=== PATIENT | male | born 1945 | race Caucasian/White ===

== ENCOUNTER 2017-01-20 09:09 | Emergency (ER) | payer MEDICARE ==
[~2017-01-20] VITALS: Ht 177.8 cm; Wt 80.0 kg
[~2017-01-20 09:09] MED LIST: BABY ASPIRIN81 MG OR; CEPHALEXIN500 MG OR; CRESTOR40 MG OR; FLONASE NASAL50 MCG; GLIPIZIDE10 MG PO; JANUVIA100 MG OR; LISINOP/HCTZ1 TAB OR; METFORMIN500 MG PO; NEURONTIN600 MG PO; OMEGA-31000 MG OR; PAROXETINE25 MG OR; TENORMIN OR; ZITHROMAX250 MG PO
[2017-01-20] MEDS ORDERED: METFORMIN500 MG PO (09:52)
[2017-01-20] MEDS ORDERED: VITAMIN D31000 UNI1 PO (09:52)
[2017-01-20] MEDS ORDERED: ATORVASTATIN CA40 MG PO (09:54)
[2017-01-20] MEDS ORDERED: LOSARTAN POTASS50 MG PO (09:55)
[2017-01-20 10:01] LABS: HEMATOCRIT 42.4 % (39.0-50.0); HEMOGLOBIN 14.6 g/dl (14.0-18.0); IMMATURE GRANULOCYTES 0.4 % (0.0-1.0); MEAN CELL VOLUME 92.8 fL CALC (80.0-100.0); MEAN CORPUSCULAR HGB 31.9 pG CALC (26.0-32.0); MEAN CORPUSCULAR HGB CONC 34.4 g/L CALC (32.0-36.0); NEUT# 7.57 thou/uL (1.82-7.42); RED BLOOD COUNT 4.57 mill/uL (4.70-6.10); RED CELL DISTRI WIDTH 13.5 % (11.5-15.5)
[2017-01-20 10:06] LABS: INFLUENZA A NONE DETECTED (NONE DETECT); INFLUENZA B NONE DETECTED (NONE DETECT)
[2017-01-20 10:12] LABS: ALBUMIN 4.4 g/dL (3.2-5.0); ALKALINE PHOSPHATASE 70 u/l (38-126); ANION GAP 19 (6-22 (CALC)); BILIRUBIN, TOTAL 2.3 mg/dL (0.0-1.4); BUN 19 mg/dL (8-23); BUN/CREATININE RATIO 15 (12-20 (CALC)); CALCIUM 9.5 mg/dL (8.4-10.2); CARBON DIOXIDE 23 mmol/l (22-30); CHLORIDE 104 mmol/l (95-108); CREATININE 1.3 mg/dL (0.7-1.3); GFR 55 ML/MIN (>=60 (CALC)); GFR FOR AFR.AMER. > 60 ML/MIN (>=60 (CALC)); GLUCOSE 310 mg/dL (82-115); POTASSIUM 4.5 mmol/l (3.5-5.1); SGOT/AST 30 u/l (19-48); SGPT/ALT 49 u/l (11-66); SODIUM 141 mmol/l (137-146); TOTAL PROTEIN 7.1 g/dL (6.3-8.2)
[2017-01-20 11:00] LABS: URINE BILIRUBIN - DIPSTICK NEGATIVE (NEGATIVE); URINE BLOOD DIPSTICK NEGATIVE (NEGATIVE); URINE CLARITY CLEAR; URINE COLOR YELLOW; URINE GLUCOSE - DIPSTICK >=1000 mg/dL (NEGATIVE); URINE KETONE NEGATIVE (NEGATIVE); URINE LEUK ESTERASE NEGATIVE (NEGATIVE); URINE NITRITE - DIPSTICK NEGATIVE (Negative); URINE PROTEIN - DIPSTICK NEGATIVE (NEG-TRACE); URINE UROBILINOGEN - DIPSTICK 0.2 E.U./dL (0.2)
[2017-01-20] MEDS ORDERED: ROBITUSSIN AC10 ML PO (11:14)
[2017-01-20] MEDS ORDERED: KEFLEX500 M1 PO (11:14)
[2017-01-20 11:35] VITALS: BP 144/70
== END 2017-01-20 11:35 | disposition home or self-care (01) ==
LOC: ED 09:09
PROVIDERS: Emergency Medicine
DX: J06.9 Acute upper respiratory infection, unspecified (principal); R05 Cough; R52 Pain, unspecified

== ENCOUNTER 2017-03-30 18:41 | Inpatient (IN) | payer MEDICARE ==
[~2017-03-30] VITALS: Ht 177.8 cm; Wt 97.0 kg
[~2017-03-30 18:41] MED LIST changes: +ATORVASTATIN CA40 MG PO; +KEFLEX500 M1 PO; +LOSARTAN POTASS50 MG PO; +ROBITUSSIN AC10 ML PO; +VITAMIN D31000 UNI1 PO
[2017-03-30 19:10] LABS: HEMOGLOBIN 14.1 g/dl (14.0-18.0); IMMATURE GRANULOCYTES 0.3 % (0.0-1.0); MEAN CELL VOLUME 91.7 fL CALC (80.0-100.0); MEAN CORPUSCULAR HGB 32.3 pG CALC (26.0-32.0); MEAN CORPUSCULAR HGB CONC 35.3 g/L CALC (32.0-36.0); NEUT# 3.05 thou/uL (1.82-7.42); RED BLOOD COUNT 4.36 mill/uL (4.70-6.10); RED CELL DISTRI WIDTH 13.4 % (11.5-15.5)
[2017-03-30 19:25] LABS: ALBUMIN 4.3 g/dL (3.2-5.0); BILIRUBIN, TOTAL 1.7 mg/dL (0.0-1.4); CALCIUM 9.9 mg/dL (8.4-10.2); CREATININE 1.5 mg/dL (0.7-1.3); POTASSIUM 4.4 mmol/l (3.5-5.1); TOTAL PROTEIN 6.7 g/dL (6.3-8.2)
[2017-03-30 19:33] LABS: INFLUENZA A POSITIVE (NONE DETECT); INFLUENZA B NONE DETECTED (NONE DETECT)
[2017-03-30 20:41] LABS: URINE BILIRUBIN - DIPSTICK NEGATIVE (NEGATIVE); URINE BLOOD DIPSTICK SMALL (NEGATIVE); URINE COLOR YELLOW; URINE GLUCOSE - DIPSTICK >=1000 mg/dL (NEGATIVE); URINE KETONE TRACE mg/dL (NEGATIVE); URINE LEUK ESTERASE NEGATIVE (NEGATIVE); URINE NITRITE - DIPSTICK NEGATIVE (Negative); URINE PROTEIN - DIPSTICK 30 mg/dL (NEG-TRACE); URINE SPECIFIC GRAVITY >=1.030; URINE UROBILINOGEN - DIPSTICK 0.2 E.U./dL (0.2)
[2017-03-30 20:42] LABS: URINE CLARITY CLEAR
[2017-03-30 20:50] LABS: URINE AMORPH SEDIMENT FEW hpf (NONE-FER); URINE RBC 0-2 RBC/hpf (0-5); URINE WBC 0-2 WBC/hpf (0-5)
[2017-03-30] MEDS ORDERED: MULTI VIT PO (22:38)
[2017-03-30] MEDS ORDERED: GLUCOSAMINE CHO1 CA3 PO (22:40)
[2017-03-30 23:00] VITALS: BP 135/74
[2017-03-31 04:35] VITALS: BP 138/74
[2017-03-31 06:09] LABS: ANION GAP 15 (6-22 (CALC)); BUN 15 mg/dL (8-23); BUN/CREATININE RATIO 13 (12-20 (CALC)); CALCIUM 9.2 mg/dL (8.4-10.2); CARBON DIOXIDE 25 mmol/l (22-30); CHLORIDE 110 mmol/l (95-108); CREATININE 1.2 mg/dL (0.7-1.3); GFR 60 ML/MIN (>=60 (CALC)); GFR FOR AFR.AMER. > 60 ML/MIN (>=60 (CALC)); GLUCOSE 222 mg/dL (82-115); HEMATOCRIT 36.2 % (39.0-50.0); HEMOGLOBIN 12.6 g/dl (14.0-18.0); IMMATURE GRANULOCYTES 0.2 % (0.0-1.0); MAGNESIUM 1.7 mg/dL (1.6-2.3); MEAN CELL VOLUME 94.5 fL CALC (80.0-100.0); MEAN CORPUSCULAR HGB 32.9 pG CALC (26.0-32.0); MEAN CORPUSCULAR HGB CONC 34.8 g/L CALC (32.0-36.0); NEUT# 3.83 thou/uL (1.82-7.42); POTASSIUM 4.2 mmol/l (3.5-5.1); RED BLOOD COUNT 3.83 mill/uL (4.70-6.10); RED CELL DISTRI WIDTH 13.9 % (11.5-15.5); SODIUM 145 mmol/l (137-146)
[2017-03-31 07:30] VITALS: BP 141/82
[2017-03-31 08:32] LABS: CHOLESTEROL HDL RATIO 2.7 (<4.4 (CALC))
[2017-03-31 11:05] VITALS: BP 143/80
[2017-03-31 15:15] VITALS: BP 149/70
[2017-03-31 19:20] VITALS: BP 153/79
[2017-03-31 23:15] VITALS: BP 151/80
[2017-04-01 03:17] VITALS: BP 136/78
[2017-04-01 06:56] LABS: HEMATOCRIT 37.9 % (39.0-50.0); HEMOGLOBIN 13.2 g/dl (14.0-18.0); IMMATURE GRANULOCYTES 0.5 % (0.0-1.0); MEAN CELL VOLUME 93.1 fL CALC (80.0-100.0); MEAN CORPUSCULAR HGB 32.4 pG CALC (26.0-32.0); MEAN CORPUSCULAR HGB CONC 34.8 g/L CALC (32.0-36.0); NEUT# 3.38 thou/uL (1.82-7.42); RED BLOOD COUNT 4.07 mill/uL (4.70-6.10); RED CELL DISTRI WIDTH 13.4 % (11.5-15.5)
[2017-04-01 07:10] LABS: ANION GAP 18 (6-22 (CALC)); BUN 19 mg/dL (8-23); BUN/CREATININE RATIO 16 (12-20 (CALC)); CALCIUM 9.1 mg/dL (8.4-10.2); CARBON DIOXIDE 23 mmol/l (22-30); CHLORIDE 106 mmol/l (95-108); CREATININE 1.2 mg/dL (0.7-1.3); GFR 60 ML/MIN (>=60 (CALC)); GFR FOR AFR.AMER. > 60 ML/MIN (>=60 (CALC)); GLUCOSE 325 mg/dL (82-115); MAGNESIUM 1.9 mg/dL (1.6-2.3); POTASSIUM 4.2 mmol/l (3.5-5.1); SODIUM 143 mmol/l (137-146)
[2017-04-01 09:23] VITALS: BP 154/73
[2017-04-01 09:34] VITALS: BP 154/73
[2017-04-01] MEDS ORDERED: ZITHROMAX500 MG PO (10:28)
[2017-04-01] MEDS ORDERED: TAM75CAP PO (10:28)
[2017-04-01] MEDS ORDERED: MEDDOSEPAK PO (10:32)
== END 2017-04-01 12:40 | disposition home or self-care (01) | DRG 194 ==
LOC: ED 18:41 → ED-I 22:11 → ED 22:40 → MS2 22:41
PROVIDERS: Emergency Medicine; Nurse Practitioner Family; ADMIT Internal Medicine; ATTEND Internal Medicine
DX: J10.00 Influenza due to other identified influenza virus with unspecified type of pneumonia (principal); N17.9 Acute kidney failure, unspecified; E11.22 Type 2 diabetes mellitus with diabetic chronic kidney disease; E11.65 Type 2 diabetes mellitus with hyperglycemia; E86.0 Dehydration; I12.9 Hypertensive chronic kidney disease with stage 1 through stage 4 chronic kidney disease, or unspecified chronic kidney disease; N18.3 Chronic kidney disease, stage 3 (moderate); E78.5 Hyperlipidemia, unspecified; I25.10 Atherosclerotic heart disease of native coronary artery without angina pectoris; T38.0X5D Adverse effect of glucocorticoids and synthetic analogues, subsequent encounter; F43.10 Post-traumatic stress disorder, unspecified; R09.02 Hypoxemia; Z79.84 Long term (current) use of oral hypoglycemic drugs
CPT/HCPCS: J1650

== ENCOUNTER 2019-02-02 18:17 | Emergency (ER) | payer OTHER, MEDICARE ==
[~2019-02-02] VITALS: Ht 177.8 cm; Wt 99.5 kg
[~2019-02-02 18:17] MED LIST changes: +GLUCOSAMINE CHO1 CA3 PO; +MEDDOSEPAK PO; +MULTI VIT PO; +TAM75CAP PO; +ZITHROMAX500 MG PO
[2019-02-02] MEDS ORDERED: AZITHROMYCIN1 GM PO (18:30)
[2019-02-02] MEDS ORDERED: PROMETHAZINE XX (18:31)
[2019-02-02] MEDS ORDERED: TAM75CAP PO (18:31)
[2019-02-02] MEDS ORDERED: VITAMIN D31000 UNI1 PO (18:32)
[2019-02-02] MEDS ORDERED: PLAVIX75 MG PO (18:35)
[2019-02-02] MEDS ORDERED: METOPROL TAR25 MG PO (18:35)
[2019-02-02 19:35] LABS: ALBUMIN 4.4 g/dL (3.2-5.0); CREATININE 1.5 mg/dL (0.7-1.3); POTASSIUM 4.3 mmol/l (3.5-5.1); TOTAL PROTEIN 7.5 g/dL (6.3-8.2)
[2019-02-02 19:37] LABS: BILIRUBIN, TOTAL 2.4 mg/dL (0.0-1.4)
[2019-02-02 19:42] LABS: IMMATURE GRANULOCYTES 0.2 % (0.0-5.0); MEAN CELL VOLUME 93.8 fL CALC (80.0-100.0); MEAN CORPUSCULAR HGB 32.5 pG CALC (26.0-32.0); MEAN CORPUSCULAR HGB CONC 34.6 g/L CALC (32.0-36.0); NEUT# 3.86 thou/uL (1.82-7.42); RED BLOOD COUNT 4.71 mill/uL (4.70-6.10); RED CELL DISTRI WIDTH 13.9 % (11.5-15.5)
[2019-02-02 19:44] LABS: HEMATOCRIT 44.2 % (39.0-50.0); HEMOGLOBIN 15.3 g/dl (14.0-18.0)
[2019-02-02 21:25] LABS: URINE BILIRUBIN - DIPSTICK NEGATIVE (NEGATIVE); URINE BLOOD DIPSTICK TRACE-INTACT (NEGATIVE); URINE COLOR YELLOW; URINE GLUCOSE - DIPSTICK 100 mg/dL (NEGATIVE); URINE KETONE NEGATIVE (NEGATIVE); URINE LEUK ESTERASE NEGATIVE (NEGATIVE); URINE NITRITE - DIPSTICK NEGATIVE (Negative); URINE PROTEIN - DIPSTICK 30 mg/dL (NEG-TRACE); URINE UROBILINOGEN - DIPSTICK 0.2 E.U./dL (0.2)
[2019-02-02 21:26] LABS: URINE SQUAMOUS EPITHELIAL CELL FEW EPI/hpf (0-FEW)
[2019-02-02] MEDS ORDERED: LOMOTIL2.5 MG PO (21:36)
[2019-02-02 21:50] VITALS: BP 133/66
== END 2019-02-02 21:50 | disposition home or self-care (01) | DRG 392 ==
LOC: ED 18:17
PROVIDERS: Family Medicine
DX: A08.4 Viral intestinal infection, unspecified (principal); R05 Cough; R50.9 Fever, unspecified; R51 Headache